=== PATIENT | female | born 1945 | race Caucasian/White ===

== ENCOUNTER 2024-03-04 12:43 | Emergency (ER) | payer MEDICARE, SELFPAY ==
[2024-03-04 12:45] VITALS: BMI 32.1
[2024-03-04 13:03] VITALS: BP 150/79; PULSE 96; RESP 20; TEMP 36.7; O2SAT 93
--- NOTE | 2024-03-04 13:08 | XR_ITS ---
Examination: CT chest, without intravenous contrast. CT abdomen, without intravenous contrast. CT pelvis, without intravenous contrast. 2-D sagittal and coronal reconstructions. 3-D reconstructions. Date and time of exam:March 04, 2024 1613 hours INDICATIONS: Patient fell 4 days ago with injury to the chest and abdomen, chest pain abdomen pain CTDI vol (mgy) 10.9 DLP (MGycm)815 Technique: Multiple CT images, 3.0 mm slice thickness, obtained chest, abdomen, pelvis, with the high-resolution 64 slice scanner.. Sagittal and coronal 2-D reconstructions are obtained. 3-D reconstructions Low dose protocols were performed. One or more of the following dose reduction techniques were used; automated exposure control, adjustment of the mA and/or KV according to patient size, use of iterative reconstruction technique. Findings: Thoracic aorta pulmonary arteries intact No hemopericardium Significant calcification left anterior descending coronary artery No pneumonia or pneumothorax pulmonary contusion or hemothorax The manubrium the body the sternum thoracic vertebral bodies appear intact Ribs appear intact No soft tissue chest contusion No liver splenic or right renal laceration, absent left kidney No gallstones No pancreatic mass Abdominal aorta intact, no free blood in the abdomen Negative for pneumoperitoneum No pericecal inflammatory change Colonic diverticulosis Contracted urinary bladder with urinary bladder wall thickening and pericystic inflammatory change Small fat-containing femoral hernias Lumbar vertebral bodies sacral segments and bones of the pelvis including anterior rami and hips appear intact No abdominal or pelvic wall soft tissue contusion Severe osteopenia with advanced degenerative disc disease L1-L2, L2-L3, L3-L4, L4-L5 IMPRESSION: Thoracic aorta pulmonary arteries intact No hemopericardium, pneumothorax, pulmonary contusion or hemothorax No abdominal parenchymal laceration Abdominal aorta intact No free blood in the abdomen Osseous structures appear intact
--- NOTE | 2024-03-04 13:08 | XR_ITS ---
Examination: CT lumbar spine, without contrast. 2-D sagittal reconstructions. 2-D coronal reconstructions. 3-D reconstructions. Date and time of exam:March 04, 2024 1613 hours INDICATIONS: Patient fell 4 days ago with injury to lower back, lower back pain CTDI: vol (mGy):24.3 DLP: (mGycm):750 Technique: Multiple 1.25 mm axial sections of the lumbar spine have been obtained. 2-D sagittal and coronal reconstructions have been obtained. 3-D reconstructions have been obtained. Low dose protocols were performed. One or more of the following dose reduction techniques were used; automated exposure control, adjustment of the mA and/or KV according to patient size, use of iterative reconstruction technique. Findings: Severe osteopenia No acute lumbar vertebral body compression fracture Significant disc narrowing upper 4 lumbar levels No spondylolisthesis Lumbar pedicles laminated transverse and posterior spinous processes intact 1 mm nonobstructing right renal calculus No focal soft tissue disc protrusion IMPRESSION: No acute lumbar fracture
--- NOTE | 2024-03-04 13:08 | XR_ITS ---
Examination: CT thoracic spine, without contrast. 2-D sagittal reconstructions. 2-D coronal reconstructions. 3-D reconstructions. Date and time of exam:March 04, 2024 1313 hours INDICATIONS: Patient fell 4 days ago with injury to the back, mid back pain CTDI: vol (mGy):21.2 DLP: (mGycm):742 Technique: Multiple 1.25 mm axial sections of the thoracic spine without intravenous contrast have been obtained. 2-D sagittal and coronal reconstructions have been obtained. 3-D reconstructions have been obtained. Low dose protocols were performed. One or more of the following dose reduction techniques were used; automated exposure control, adjustment of the mA and/or KV according to patient size, use of iterative reconstruction technique. Findings: Prominent osteopenia No acute thoracic vertebral body compression fracture Thoracic pedicles lamina transverse and posterior spinous processes appear intact No focal thoracic disc protrusion oval soft tissue density settings No pneumothorax No hemothorax depicted IMPRESSION: No acute thoracic fracture
--- NOTE | 2024-03-04 13:08 | XR_ITS ---
Examination: Knee, left , 3 views Technique: Knee AP, lateral, oblique 3 views Date and time of exam: March 04, 2024 1414 hours INDICATIONS: Patient fell 5 days ago with injury to the knee, knee pain FINDINGS: Significant osteopenia Moderate narrowing medial joint space Mild osteoarthritis patellofemoral joint No fracture IMPRESSION: Moderate narrowing medial joint space Meniscus calcification
[2024-03-04 13:52] LABS: Collection Type, Urine Clean Catch
[2024-03-04 14:01] LABS: Bacteria,Urine Rare; Bilirubin,Urine Negative (Negative); Blood,Urine 2+ (Negative); Budding Yeast,Urine Present; Color,Urine Yellow (Lt Yel-Yel); Culture Indicated,Urine Contaminated; Glucose, Urine Negative (Negative); Hyaline Casts,Urine < 1 /hpf (0-1); Ketones,Urine Negative (Negative); Leukocyte Esterase,Urine Positive (Negative); Nitrite,Urine Negative (Negative); PH,Urine 5.5 (5.0-7.0); Protein,Urine 1+ (Neg - Trace); RBC,Urine 45 /hpf (0-3); Specific Gravity,Urine 1.021 (1.001-1.035); Squamous Epithelial Cell,Urine 12 /hpf (0-5); Urobilinogen,Urine Negative mg/dL (0.0-1.0); WBC,Urine 627 /hpf (0-5)
[2024-03-04 14:08] LABS: Clarity,Urine Cloudy (Clear/Hazy)
--- NOTE | 2024-03-04 14:14 | PD.EDFALL ---
ED Fall Injury RME/HPI General Chief Complaint: Abdominal Pain Stated Complaint: INCONT/CONSTIPATION S/P FALL 4 DAYS AGO Time Seen by Provider: 03/04/24 12:57 Arrival date/time: 03/04/24 12:43 RME / HPI RME / HPI Narrative: This section includes all my notes and documentations, including HPI, PE, and ED course. Chito Diaz MD HPI: 78-year-old female here to be evaluated after a mechanical fall several days ago. Landed on her left side. No head injury. Reports pain in the left ankle area. She also reports urinary frequency and incontinence for the past several days. No paralysis. No numbness or tingling. No loss of control of the bowels. No saddle numbness. No other complaints. ROS: All negative except as documented in HPI. Physical Exam: General: Alert and oriented. No acute distress. Eyes: Conjunctivae and lids clear. EOMI. PERRL. ENT: No signs of head trauma. Neck: Supple. No tenderness. Heart: RRR. Lungs: No respiratory distress. Good air movement. No rhonchi, wheezing, rales. Chest: No tenderness. Abdomen: Soft and nontender. Normal bowel sounds. No distension. No rebound or guarding. Back: No tenderness. Legs: No clubbing, cyanosis, edema. Skin: Warm and dry. Neuro: Alert and oriented X 3. Cranial Nerves II-XII grossly intact. No peripheral motor deficits. Musculoskeletal: Equivocal left knee tenderness. All other major joints and bones are not tender with no limited ROM. I reviewed all diagnostic test results. My interpretation of the left knee x-rays is no acute fracture. My review of the CT reports (chest/abdomen/pelvis and thoracic/lumbar) is no acute findings. UA showed RBC and WBC and bacteria. At this point, diagnoses include UTI and no severe injury after mechanical fall. Treatment here included Macrobid 100 mg. Based on my best medical judgment, made decision no further evaluation or treatment indicated at this time. Patient understands and agrees to the discharge instructions customized and printed, see below. Discharge Instructions from Dr. Diaz printed for you: 1. After extensive evaluation (including CT scans with advanced technology to look inside), there is no serious injury. Such as broken back or broken ribs or other broken bone or internal organ injury. 2. But you have severe UTI. Take Macrobid (nitrofurantoin) to kill the germs causing the infection.? Increase oral fluid to flush it out.? Maintain clear urine.? If dark or yellow, increase oral fluid. 3. See a private doctor on 03/07/2024 for recheck if not completely better. 4. Seek immediate medical care with worsening or with any concerns. Chito Diaz MD Related Data Home Medications ?Medication ?Instructions ?Recorded ?Confirmed Amitriptyline Hcl PO HS Depression ##0 01/12/13 pregabalin 300 mg capsule (Lyrica) PO BID PAIN ##0 01/12/13 loratadine 10 mg tablet (Claritin) 10 mg PO QDAY #0 tabs 12/12/16 Previous Rx's ?Medication ?Instructions ?Recorded HYDROCODONE BITARTRATE/APAP 1 tab PO Q4-6HRPRN PRN PAIN ##30 10/27/12 (Vicodin 5/500*) nitrofurantoin 100 mg PO BID 7 days #14 caps 03/04/24 monohydrate/macrocrystals 100 mg capsule (Macrobid) Allergies Allergy/AdvReac Type Severity Reaction Status Date / Time Penicillins Allergy Severe RASH Verified 03/04/24 12:49 pseudoephedrine Allergy Severe Difficulty Verified 03/04/24 12:49 Breathing Sulfa (Sulfonamide Allergy Severe RASH, Verified 03/04/24 12:49 Antibiotics) TAKES O2 OUT OF BLOOD diazepam AdvReac Severe MOOD Verified 03/04/24 12:49 ALTERATION propoxyphene AdvReac Severe GOES CRAZY Verified 03/04/24 12:49 Course Quality Measures none Orders Category Date Time Status CT chest abdomen pelvis wo Stat Exams 03/04/24 13:[address] lumbar spine wo con Stat Exams 03/04/24 13:[address] thoracic spine wo con Stat Exams 03/04/24 13:08 Completed XR knee LT 3V Stat Exams 03/04/24 13:08 Completed UA, C/S IF [Urinalysis, C/S if Indicated] Stat Lab 03/04/24 13:45 Completed Nitrofurantoin Macro [Macrobid] Med 03/04/24 14:14 Discontinued 100 mg PO X1 ONE Vital Signs Vital signs: Vital Signs Temperature 98.1 F 03/04/24 13:03 Pulse Rate 96 03/04/24 13:03 Respiratory Rate 20 03/04/24 13:03 Blood Pressure 150/79 H 03/04/24 13:03 Pulse Oximetry (%) 93 L 03/04/24 13:03 Oxygen Delivery Method Room Air 03/04/24 13:03 Fall Patient data External records reviewed:: [facility] previous records Clinical information provided by:: patient Social determinants that could affect healthcare access:: none Patient has the following chronic illnesses:: See chart How is presenting disease/condition affected by chronic disease/condition?: uneffected by Evaluation data The following diagnostics were reviewed and interpreted by me:: lab results and radiology exam(s) Lab and/or radiology exams considered but not ordered:: None Interpretation Summary: UTI Medications / Prescriptions Medications or Prescriptions considered but not ordered:: None Medication administrations:: Medication Administration History Discontinued Medications Nitrofurantoin Macrocrystals (Nitrofurantoin Macro 100 Mg Capsule) 100 mg PO X1 ONE Stop: 03/04/24 14:15 Last Admin: 03/04/24 15:03 Dose: 100 mg Documented By: DAKOTA Macrobikaia Consultations Consultation(s) initiated? (list below): No Diagnosis Fall Differential Diagnosis: compression fracture and other (Fracture, internal organ injury, UTI) Most likely diagnosis given after review of the tests above:: UTI Admission Indicated Admission indicated?: not indicated Explain why admission is indicated or not indicated:: Admission criteria not met Admission Request Was there a request for admission?: No Disposition Plan Disposition Plan: Discharge Discharge Attestation Discharge Attestation: The patient and all family members were given an opportunity to ask questions and understood the discharge instructions. Discharge instructions specifically effects, indications for sooner follow up or return to the emergency department, and the expected course of current diagnosis. Patient condition: Stable Discharge Plan Plan Patient Disposition: HOME (Self Care) Prescriptions/Referrals Prescriptions/Med Rec: New nitrofurantoin monohyd/m-cryst [Macrobid] 100 mg capsule 100 mg PO BID 7 Days Qty: 14 0RF Rx Instructions: must administer with a meal/food No Action HYDROCODONE BITARTRATE/APAP (Vicodin 5/500*) 1 TAB tablet 1 tab PO Q4-6HRPRN PRN (Reason: PAIN) Qty: 30 0RF Amitriptyline Hcl 50 MG tablet PO HS Qty: 0 pregabalin [Lyrica] 300 MG capsule PO BID Qty: 0 loratadine [Claritin] 10 MG tablet 10 mg PO QDAY Qty: 0 Referrals: Zoraida Rosas MD [Primary Care Provider] - In 1 week Problem List Clinical Impression: Acute UTI, Fall Patient/Caregiver Discharge Instructions Discharge Activity: activity as tolerated Education Materials: ED CYSTITIS Female Adult Additional Instructions: Discharge Instructions from Dr. Diaz printed for you: 1. After extensive evaluation (including CT scans with advanced technology to look inside), there is no serious injury. Such as broken back or broken ribs or other broken bone or internal organ injury. 2. But you have severe UTI. Take Macrobid (nitrofurantoin) to kill the germs causing the infection.? Increase oral fluid to flush it out.? Maintain clear urine.? If dark or yellow, increase oral fluid. 3. See a private doctor on 03/07/2024 for recheck if not completely better. 4. Seek immediate medical care with worsening or with any concerns. Print Language: Citizen Of [place] Stand Alone Forms: Jacki Award Info., Patient Portal Info Letter
[2024-03-04] MEDS: NITROFURANTOIN MACRO 100 MG CAPSULE PO (15:03)
== END 2024-03-04 17:15 | disposition home or self-care (01) ==
PROVIDERS: Emergency Provider Emergency Medicine; PCP Family Medicine
DX: S89.92XA Unspecified injury of left lower leg, initial encounter (principal); S29.9XXA Unspecified injury of thorax, initial encounter; S39.91XA Unspecified injury of abdomen, initial encounter; S39.92XA Unspecified injury of lower back, initial encounter; N39.0 Urinary tract infection, site not specified; W18.30XA Fall on same level, unspecified, initial encounter
CPT/HCPCS: 71250; 72128; 72131; 73562; 74176; 81001; 99284; A9270

== ENCOUNTER → 2024-03-04 | Outpatient (CLI) | payer MEDICARE, SELFPAY | END | disposition home or self-care (01) | LOC: SLDO 12:21 | PROVIDERS: PCP Nurse Practitioner Family; Referring Provider Nurse Practitioner Family; Visit Provider Nurse Practitioner Family | DX: N39.0 Urinary tract infection, site not specified (principal) | CPT/HCPCS: 87077; 87086; 87186 ==

== ENCOUNTER → 2024-03-10 | Outpatient (CLI) | payer MEDICARE, SELFPAY | END | disposition home or self-care (01) | LOC: SLDO 16:05 | PROVIDERS: PCP Nurse Practitioner Family; Referring Provider Nurse Practitioner Family; Visit Provider Nurse Practitioner Family | DX: N39.0 Urinary tract infection, site not specified (principal) | CPT/HCPCS: 87086 ==

== ENCOUNTER → 2024-06-25 | Outpatient (CLI) | payer OTHER, SELFPAY ==
--- NOTE | 2024-06-25 09:30 | XR_ITS ---
Examination: MRI lumbar spine without contrast Date and time of exam: June 25, 2024 at 0938 hours INDICATIONS: Patient fell 4 months ago with injury to lower back, persistent lower back pain Technique: Multiple MRI axial and sagittal sections lumbar spine. Sagittal T2-weighted images, TR 3500, TE 118 T1 weighted transverse sections, TR 688 T8.5, T2-weighted sagittal sections T1 weighted sagittal sections TR 621, TE 30 T2 axial sections, TR 4, 190, TE 84. Findings: Adequate alignment lumbar vertebral bodies on the lateral view No lumbar fracture Advanced disc narrowing L3-L4 Diffuse lumbar disc desiccation Moderate lumbar spondylosis L5-S1 2 mm central right paracentral disc bulge extending to the left foraminal region with mild left L5 ganglionic compression L4-L5 bilateral foraminal disc bulges, 6 mm on the right with mild right L4 ganglionic compression L3-L4 5 mm central lumbar disc bulge L2-L3 foraminal disc bulges but no ganglionic compression L1-L2 foraminal disc bulges but no ganglionic compression IMPRESSION: Diffuse lumbar degenerative disc disease, advanced L3-L4 L5-S1 2 mm central right paracentral disc bulge extending to the left foraminal region with mild left L5 ganglionic impression L5-S1 6 mm right foraminal disc bulge producing mild right L4 ganglionic compression L3-L4 5 mm central lumbar disc bulge
== END | disposition home or self-care (01) ==
LOC: SMRI 08:56
PROVIDERS: PCP Family Medicine; Referring Provider Nurse Practitioner Family; Visit Provider Nurse Practitioner Family
DX: M51.370 Other intervertebral disc degeneration, lumbosacral region with discogenic back pain only (principal); M51.360 Other intervertebral disc degeneration, lumbar region with discogenic back pain only; G95.20 Unspecified cord compression
CPT/HCPCS: 72148

== ENCOUNTER → 2024-07-13 | Outpatient (CLI) | payer OTHER, SELFPAY ==
[2024-07-13 12:05] LABS: Amphetamine/Methamp Scrn,U Negative (Negative); Barbiturate Screen,Urine Negative (Negative); Benzodiazepines Screen,Urine Negative (Negative); Benzoylecgonine Screen, Ur Negative (Negative); Fentanyl Screen,Urine Negative (Negative); Opiate Screen,Urine Positive (Negative); THC Screen,Urine Negative (Negative)
== END | disposition home or self-care (01) ==
PROVIDERS: Referring Provider Internal Medicine; Visit Provider Internal Medicine
DX: M48.061 Spinal stenosis, lumbar region without neurogenic claudication (principal)
CPT/HCPCS: 80307

== ENCOUNTER 2024-09-22 11:54 | Emergency (ER) | payer OTHER, SELFPAY ==
[2024-09-22 12:33] VITALS: BP 81/50; BP 96/50; PULSE 99; RESP 20; TEMP 36.3; O2SAT 94; BMI 30.1
--- NOTE | 2024-09-22 12:45 | XR_ITS ---
Examination: CT brain head without contrast. 2-D sagittal coronal reconstructions Date and time of exam:September 22, 2024 1253 hours INDICATIONS: Patient fell today with injury to the head, head pain COMPARISON: July 28, 2018 CTDI: vol (mGy):55 DLP: (mGycm):1165 Technique: Multiple CT axial sections of the brain have been obtained, 5 mm slice thickness. Contrast has not been administered. 2-D sagittal, coronal reconstructions have been obtained Low dose protocols were performed. One or more of the following dose reduction techniques were used; automated exposure control, adjustment of the mA and/or KV according to patient size, use of iterative reconstruction technique. Findings: No significant ventricular enlargement. 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 No mass effect or midline shift Basal cisterns are not remarkable. Fourth ventricle is midline. Cranial vault intact. Impression: Negative for acute hemorrhage, mass effect or midline shift
--- NOTE | 2024-09-22 12:45 | XR_ITS ---
Examination: CT cervical spine without contrast 2-D sagittal reconstructions 2-D coronal reconstructions 3-D reconstructions. Exam date and time:September 22, 2024 1253 hours INDICATIONS: Patient fell today with injury to the neck, neck pain CTDI:vol (mGy) 15.2 DLP: (mGycm) 329 Technique: Multiple 2 mm axial sections of the cervical spine have been obtained. The coronal and sagittal reconstructions have been obtained. 3-D reconstructions have been obtained. Low dose protocols were performed. One or more of the following dose reduction techniques were used; automated exposure control, adjustment of the mA and/or KV according to patient size, use of iterative reconstruction technique. Findings: Axial sections demonstrate intact base of the skull. Advanced degenerative disc disease C5-C6 C1 exhibit satisfactory relationship to the odontoid. No acute cervical vertebral body fracture seen. Alignment posterior spinous processes satisfactory. Impression: No acute cervical fracture.
--- NOTE | 2024-09-22 12:45 | XR_ITS ---
Examination: AP chest single view Technique one AP portable upright chest single view Date and time: September 22, 2024 1341 hours Comparison June 19, 2022 INDICATIONS: Patient fell today with into the chest, chest pain. FINDINGS: No significant cardiac enlargement No pneumothorax Minimal blunting of the lateral costophrenic angle Moderate osteopenia Clavicles ribs appear intact IMPRESSION: No pneumothorax
--- NOTE | 2024-09-22 12:47 | EKG_ITS ---
[facility] Test Date: 2024-09-22 Pat Name: MALGORZATA VILLARREAL Department: Room: - Gender: Female Sample Body Builder: : 1945 Requested By: Angel Sylvester Order Number: [id number] Reading MD: Angel Sylvester Measurements Intervals [place] Rate: 77 P: 8 DC: 233 QRS: 28 QRSD: 77 T: 30 QT: 350 QTc: 397 Interpretive Statements SINUS RHYTHM WITH FIRST DEGREE AV BLOCK LOW QRS VOLTAGE IN PRECORDIAL LEADS [QRS DEFLECTION < 1.0 mV IN CHEST LEADS] No previous ECG available for comparison /[id number]/[email or web address]/[id number]
--- NOTE | 2024-09-22 12:47 | PD.EDHEAD ---
ED Head Injury RME/HPI General Chief complaint: Head Injury Stated complaint: HEAD INJURY OFF COFFEE TABLE WITH LOC Time Seen by Provider: 09/22/24 11:58 Arrival date/time: 09/22/24 11:54 RME / HPI RME / HPI Narrative: 79-year-old female patient was brought in by family for evaluation regarding dizziness. Patient sustained a fall earlier last night, sustaining abrasion/contusion to the left forehead. Patient also complained of neck pain severity mild. Been complaining of dizziness especially with ambulation and standing. Denies any chest pain. Denies any fever denies any cough denies any abdominal pain denies any diarrhea or constipation. Denies any vomiting. In the triage patient was noted to be hypotensive on the low 90s. Related Data Home Medications ?Medication ?Instructions ?Recorded ?Confirmed Amitriptyline Hcl PO HS Depression ##0 01/12/13 pregabalin 300 mg capsule (Lyrica) PO BID PAIN ##0 01/12/13 loratadine 10 mg tablet (Claritin) 10 mg PO QDAY #0 tabs 12/12/16 Previous Rx's ?Medication ?Instructions ?Recorded HYDROCODONE BITARTRATE/APAP 1 tab PO Q4-6HRPRN PRN PAIN ##30 10/27/12 (Vicodin 5/500*) cephalexin 500 mg capsule 500 mg PO TID 7 days #21 caps 09/22/24 Allergies Allergy/AdvReac Type Severity Reaction Status Date / Time Penicillins Allergy Severe RASH Verified 09/22/24 11:57 pseudoephedrine Allergy Severe Difficulty Verified 09/22/24 11:57 Breathing Sulfa (Sulfonamide Allergy Severe RASH, Verified 09/22/24 11:57 Antibiotics) TAKES O2 OUT OF BLOOD diazepam AdvReac Severe MOOD Verified 09/22/24 11:57 ALTERATION propoxyphene AdvReac Severe GOES CRAZY Verified 09/22/24 11:57 Review of Systems Review of Systems Narrative Review of Systems: Review of system reviewed and within normal limits except mentioned in HPI ED Exam Narrative Physical exam: VITAL SIGNS: Reviewed. GENERAL APPEARANCE: Alert and interactive, follows commands, no acute distress, HEAD AND FACE: Contusion noted to the left forehead ENT: PERRL, pink conjunctivitis, eyelid no trauma, Mucous membrane moist. NECK: Supple, nontender, no nuchal rigidity. CHEST: No tenderness, no crepitus, no paradoxical movement, no retractions. LUNGS: Clear, well ventilated, symmetric, no rales, no wheezing, no ronchi, no stridor, good breath sounds bilaterally. HEART: Regular rate, regular rhythm, no murmur, no gallops. ABDOMEN: Soft, positive bowel sounds, nondistended, no guarding, nontender, no rebound, no masses, RECTAL: Deferred. GENITAL: Deferred. NEUROLOGICAL: Gross motor function intact sensory function intact, Appropriate for age. MUSCULOSKELETAL: low back nontender, full range of motion. EXTREMITIES: Nontender, full range of motion. SKIN: Color pink, dry, no rash, no lacerations, no abrasions, no contusions. LYMPHATICS: Deferred. Course Quality Measures none Orders Category Date Time Status EKG (ED ONLY) *Do not use* NOW Care 09/22/24 12:[address] cervical spine wo con Stat Exams 09/22/24 12:[address] head/brain wo con Stat Exams 09/22/24 12:45 Completed EKG (ED Only) Stat Exams 09/22/24 12:47 Draft XR chest 1V Stat Exams 09/22/24 12:45 Completed B-Type Natriuretic Peptide Stat Lab 09/22/24 12:55 Completed CBC Stat Lab 09/22/24 12:55 Completed Comprehensive Metabolic Panel Stat Lab 09/22/24 12:55 Completed Partial Thromboplastin Time Stat Lab 09/22/24 12:55 Completed Prothrombin Time with INR Stat Lab 09/22/24 12:55 Completed Troponin I Stat Lab 09/22/24 12:55 Completed Urinalysis, C/S if Indicated Stat Lab 09/22/24 16:54 Completed Ringers Lactated 1000 ml [Lactated Ringers] 1,000 ml Med 09/22/24 12:47 Discontinued IV 999 mls/hr cephALEXin [Keflex] Med 09/22/24 18:28 Discontinued 500 mg PO X1 ONE Vital Signs Vital signs: Vital Signs Temperature 97.4 F 09/22/24 12:33 Pulse Rate 99 09/22/24 12:33 Respiratory Rate 20 09/22/24 12:33 Blood Pressure 96/50 L 09/22/24 12:33 Pulse Oximetry (%) 94 L 09/22/24 12:33 Oxygen Delivery Method Room Air 09/22/24 12:33 Head Injury [facility] Narrative [facility] Narrative:: 79-year-old female patient was brought in by family for evaluation regarding dizziness. Patient sustained a fall earlier last night, sustaining abrasion/contusion to the left forehead. Patient also complained of neck pain severity mild. Been complaining of dizziness especially with ambulation and standing. Denies any chest pain. Denies any fever denies any cough denies any abdominal pain denies any diarrhea or constipation. Denies any vomiting. In the triage patient was noted to be hypotensive on the low 90s. EKG showed sinus rhythm, ventricular rate of 77 bpm, no ST segment elevation or depression noted. CT scan of the head came back unremarkable. CT scan of the neck came back unremarkable. Chest x-ray also came back normal. The rest of the labs are within normal limits. Patient blood pressure was noted to be 159/83 heart rate of 83 after patient received 1 L of IV fluids. Patient stable for discharge home no recurrence of hypotension in the ED. Patient was also given Keflex for UTI. Patient data External records reviewed:: None Clinical information provided by:: patient Social determinants that could affect healthcare access:: none Patient has the following chronic illnesses:: Hypertension How is presenting disease/condition affected by chronic disease/condition?: exacerbated by Evaluation data The following diagnostics were reviewed and interpreted by me:: lab results, radiology exam(s) and EKG tracing(s) Lab and/or radiology exams considered but not ordered:: None Interpretation Summary: See results [facility] Medications / Prescriptions Medications or Prescriptions considered but not ordered:: None Medication administrations:: Medication Administration History Discontinued Medications Cephalexin HCl (Cephalexin 250 Mg Capsule) 500 mg PO X1 ONE Stop: 09/22/24 18:29 Lactated Ringer's (Lactated Ringers) 1,000 mls @ 999 mls/hr IV .Q1H1M ONE Stop: 09/22/24 13:47 Last Infusion: 09/22/24 14:13 Dose: Infused Documented By: Admin: 09/22/24 13:12 Dose: 999 mls/hr Documented By: AUREA Keflex and IV fluids Consultations Consultation(s) initiated? (list below): No Diagnosis Differential diagnosis head injury: closed head injury and subdural hematoma Most likely diagnosis given after review of the tests above:: Hypotension, UTI, fall Admission Indicated Admission indicated?: not indicated Admission Request Was there a request for admission?: No Disposition Plan Disposition Plan: Discharge Discharge Attestation Discharge Attestation: The patient and all family members were given an opportunity to ask questions and understood the discharge instructions. Discharge instructions specifically effects, indications for sooner follow up or return to the emergency department, and the expected course of current diagnosis. Patient condition: Stable Discharge Plan Plan Patient Disposition: HOME (Self Care) Discharge Disposition comment: stable Prescriptions/Referrals Prescriptions/Med Rec: New cephalexin 500 mg capsule 500 mg PO TID 7 Days Qty: 21 0RF No Action HYDROCODONE BITARTRATE/APAP (Vicodin 5/500*) 1 TAB tablet 1 tab PO Q4-6HRPRN PRN (Reason: PAIN) Qty: 30 0RF Amitriptyline Hcl 50 MG tablet PO HS Qty: 0 pregabalin [Lyrica] 300 MG capsule PO BID Qty: 0 loratadine [Claritin] 10 MG tablet 10 mg PO QDAY Qty: 0 Referrals: Darwin Rosas MD [Primary Care Provider] - In 1 week Problem List Clinical Impression: Fall, Acute hypotension, UTI (urinary tract infection) Patient/Caregiver Discharge Instructions Discharge Activity: activity as tolerated Education Materials: Understanding Urinary Tract ... Additional Instructions: Thank you for the opportunity for serving you today. You are stable for discharged . You are advised to: Follow-up with your PCP in 1 to 2 days Return to ED for worsening of symptoms Increase oral fluids Take medication as prescribed Print Language: Samoan Stand Alone Forms: Jacki Award Info., Patient Portal Info Letter SHAWN/SORAIDA Supervising Physician SHAWN/SORAIDA Supervising Physician: MD Tanya
[2024-09-22] MEDS: RINGERS LACTATED 1000 ML 1,000 ML 999 ML IV (13:12)
[2024-09-22 13:15] LABS: Basophils # (Auto) 0.1 Thou/mm3 (0.0-0.2); Basophils % (Auto) 1 % (0-2.5); Eosinophils # (Auto) 0.3 Thou/mm3 (0.0-0.5); Eosinophils % (Auto) 3 % (0-10); Hematocrit 47.7 % (36.0-46.0); Hemoglobin 15.7 g/dL (12.0-16.0); Immature Granulocytes Auto 0.04 Thou/mm3 (0.00-0.00); Lymphocytes # (Auto) 1.8 Thou/mm3 (1.0-4.8); Lymphocytes % (Auto) 16 % (10-50); Mean Corpuscular HGB Conc 32.9 g/dl (31.0-37.0); Mean Corpuscular Hemoglobin 29.7 pg (25.0-35.0); Mean Corpuscular Volume 90 fL (80-100); Monocytes # (Auto) 0.5 Thou/mm3 (0.0-0.8); Monocytes % (Auto) 5 % (0-12); Neutrophils # (Auto) 8.2 Thou/mm3 (1.8-7.7); Neutrophils % (Auto) 75 % (37-80); Nucleated Red Blood Cell # 0.00 Thou/mm3 (0.00-0.00); Nucleated Red Blood Cell % 0 /100 WBC (0); Platelet Count 292 Thou/mm3 (140-440); RDW Standard Deviation 42.7 fL (36.4-46.3); Red Blood Count 5.28 Miln/mm3 (4.00-5.20); White Blood Count 10.9 Thou/mm3 (3.6-11.0)
[2024-09-22 13:32] LABS: INR 1.0 (0.9-1.3); Partial Thromboplastin Time 27.4 Seconds (22.0-36.0); Prothrombin Time 11.4 Seconds (9.0-12.2)
[2024-09-22 13:33] LABS: Alanine Aminotransferase 13 U/L (10-49); Albumin, Serum 4.3 gm/dL (3.4-4.8); Albumin/Globulin Ratio 1.3 (1.2-2.2); Alkaline Phosphatase 109 U/L (46-116); Anion Gap 4 (7-16); Aspartate Amino Transferase 22 U/L (0-34); BUN/Creatinine Ratio 9 Ratio (12-20); Bilirubin,Total 0.4 mg/dL (0.3-1.2); Blood Urea Nitrogen 12 mg/dL (9-23); Calcium 9.3 mg/dL (8.3-10.6); Calcium (Corrected) 9.3 mg/dL (8.5-10.1); Carbon Dioxide 31.0 mMol/L (20.0-31.0); Chloride 103 mMol/L (98-107); Creatinine (Component) 1.4 mg/dL (0.6-1.3); Estimated Creatinine Clearance 35.6 mL/min (>60); Globulin 3.2 gm/dL (2.3-3.5); Glucose 141 mg/dL (74-106); Osmolality,Calculated 277 (275-295); Potassium 3.6 mMol/L (3.4-5.1); Sodium 138 mMol/L (136-145); Total Protein 7.5 gm/dL (5.7-8.2); Troponin I < 0.020 ng/mL (0.0-0.045); eGFR 39 See Note
[2024-09-22 13:39] LABS: B-Type Natriuretic Peptide 80 pg/mL (0-100)
[2024-09-22 14:05] VITALS: BP 125/65; PULSE 75; RESP 15; TEMP 37.1; O2SAT 94
[2024-09-22 16:00] VITALS: BP 145/75; PULSE 72; RESP 16; TEMP 37.1; O2SAT 93
[2024-09-22 16:57] LABS: Collection Type, Urine Clean Catch
[2024-09-22 17:30] LABS: Bacteria,Urine Rare; Bilirubin,Urine Negative (Negative); Blood,Urine Negative (Negative); Clarity,Urine Clear (Clear/Hazy); Color,Urine Colorless (Lt Yel-Yel); Culture Indicated,Urine Not Indicated; Glucose, Urine Negative (Negative); Ketones,Urine Negative (Negative); Leukocyte Esterase,Urine Positive (Negative); Nitrite,Urine Negative (Negative); PH,Urine 6.0 (5.0-7.0); Protein,Urine Negative (Neg - Trace); RBC,Urine 1 /hpf (0-3); Specific Gravity,Urine 1.007 (1.001-1.035); Squamous Epithelial Cell,Urine 1 /hpf (0-5); Urobilinogen,Urine Negative mg/dL (0.0-1.0); WBC,Urine 6 /hpf (0-5)
[2024-09-22 18:00] VITALS: BP 159/83; PULSE 83; RESP 21; TEMP 36.6; O2SAT 95
== END 2024-09-22 19:05 | disposition home or self-care (01) ==
PROVIDERS: Nurse Practitioner Family; Emergency Provider Family Medicine; PCP Family Medicine
DX: I95.9 Hypotension, unspecified (principal); N39.0 Urinary tract infection, site not specified; S00.81XA Abrasion of other part of head, initial encounter; S00.93XA Contusion of unspecified part of head, initial encounter; S19.9XXA Unspecified injury of neck, initial encounter; R07.9 Chest pain, unspecified; I44.0 Atrioventricular block, first degree; I10 Essential (primary) hypertension; W18.30XA Fall on same level, unspecified, initial encounter
CPT/HCPCS: 36415; 70450; 71045; 72125; 80053; 81001; 83880; 84484; 85025; 85610; 85730; 93005; 96360; 99283; J7120; A9270

== ENCOUNTER → 2024-10-06 | Outpatient (CLI) | payer OTHER, SELFPAY ==
[2024-10-06 15:09] LABS: Basophils # (Auto) 0.0 Thou/mm3 (0.0-0.2); Basophils % (Auto) 1 % (0-2.5); Eosinophils # (Auto) 0.3 Thou/mm3 (0.0-0.5); Eosinophils % (Auto) 4 % (0-10); Hematocrit 45.7 % (36.0-46.0); Hemoglobin 15.2 g/dL (12.0-16.0); Immature Granulocytes Auto 0.02 Thou/mm3 (0.00-0.00); Lymphocytes # (Auto) 2.0 Thou/mm3 (1.0-4.8); Lymphocytes % (Auto) 22 % (10-50); Mean Corpuscular HGB Conc 33.3 g/dl (31.0-37.0); Mean Corpuscular Hemoglobin 30.1 pg (25.0-35.0); Mean Corpuscular Volume 91 fL (80-100); Monocytes # (Auto) 0.4 Thou/mm3 (0.0-0.8); Monocytes % (Auto) 5 % (0-12); Neutrophils # (Auto) 6.0 Thou/mm3 (1.8-7.7); Neutrophils % (Auto) 68 % (37-80); Nucleated Red Blood Cell # 0.00 Thou/mm3 (0.00-0.00); Nucleated Red Blood Cell % 0 /100 WBC (0); Platelet Count 253 Thou/mm3 (140-440); RDW Standard Deviation 43.3 fL (36.4-46.3); Red Blood Count 5.05 Miln/mm3 (4.00-5.20); White Blood Count 8.8 Thou/mm3 (3.6-11.0)
[2024-10-06 15:27] LABS: T4 (Thyroxine) 7.5 mcg/dL (4.5-10.9); Vitamin D 25 Hydroxy Total 34.5 ng/mL (7.3-40.2)
[2024-10-06 15:30] LABS: Glucose Estimated Average 105 mg/dL (80-131); Hemoglobin A1C 5.3 % Hgb (4.8-6.0)
[2024-10-06 15:31] LABS: Creatinine MALB Rnd Ur 132 mg/dL (30-125); Microalbumin Creat Ratio 8 mg/gCrea (<30); Microalbumin, Random Urine 11 mg/L (0-300)
[2024-10-06 15:34] LABS: Alanine Aminotransferase 20 U/L (10-49); Albumin, Serum 4.5 gm/dL (3.4-4.8); Albumin/Globulin Ratio 1.6 (1.2-2.2); Alkaline Phosphatase 93 U/L (46-116); Anion Gap 9 (7-16); Aspartate Amino Transferase 30 U/L (0-34); BUN/Creatinine Ratio 8 Ratio (12-20); Bilirubin,Total 0.4 mg/dL (0.3-1.2); Blood Urea Nitrogen 8 mg/dL (9-23); Calcium 9.7 mg/dL (8.3-10.6); Calcium (Corrected) 9.7 mg/dL (8.5-10.1); Carbon Dioxide 31.4 mMol/L (20.0-31.0); Cardiac Risk Estimate 5.5 RATIO (3.7-5.6); Chloride 102 mMol/L (98-107); Cholesterol 230 mg/dL (132-200); Creatinine (Component) 1.0 mg/dL (0.6-1.3); Globulin 2.9 gm/dL (2.3-3.5); Glucose 94 mg/dL (74-106); HDL Cholesterol 42 mg/dL (40-60); LDL Cholesterol,Calculated 148 mg/dL (0-130); Osmolality,Calculated 281 (275-295); Potassium 3.8 mMol/L (3.4-5.1); Sodium 142 mMol/L (136-145); Thyroid Stimulating Hormone 2.14 uIU/mL (0.55-4.78); Total Protein 7.4 gm/dL (5.7-8.2); Triglycerides 200 mg/dL (30-150); eGFR 58 See Note
[2024-10-06 15:45] LABS: Sed Rate (ESR) 36 mm/hr (0-30)
[2024-10-06 20:26] LABS: RA Screen Negative (Negative)
[2024-10-12 06:53] LABS: ANA Pattern NUCLEAR, HOMOGENEOUS; ANA Screen, IFA POSITIVE (NEGATIVE); ANA Titer 1:40 titer
== END | disposition home or self-care (01) ==
LOC: COPL 14:06
PROVIDERS: PCP Family Medicine; Referring Provider Nurse Practitioner Family; Visit Provider Nurse Practitioner Family
DX: I10 Essential (primary) hypertension (principal); E78.5 Hyperlipidemia, unspecified; R73.03 Prediabetes; E55.9 Vitamin D deficiency, unspecified; D89.9 Disorder involving the immune mechanism, unspecified
CPT/HCPCS: 36415; 80053; 80061; 82043; 82306; 82570; 83036; 84436; 84443; 85025; 85652; 86038; 86430

== ENCOUNTER → 2024-10-14 | Outpatient (CLI) | payer OTHER, SELFPAY ==
[2024-10-14 14:34] LABS: Collection Type, Urine Clean Catch
[2024-10-14 16:44] LABS: Bacteria,Urine Rare; Bilirubin,Urine Negative (Negative); Blood,Urine Negative (Negative); Clarity,Urine Clear (Clear/Hazy); Color,Urine Lt-Yellow (Lt Yel-Yel); Glucose, Urine Negative (Negative); Hyaline Casts,Urine < 1 /hpf (0-1); Ketones,Urine Negative (Negative); Leukocyte Esterase,Urine Positive (Negative); Nitrite,Urine Negative (Negative); PH,Urine 5.5 (5.0-7.0); Protein,Urine Negative (Neg - Trace); RBC,Urine 1 /hpf (0-3); Specific Gravity,Urine 1.021 (1.001-1.035); Squamous Epithelial Cell,Urine 4 /hpf (0-5); Urobilinogen,Urine Negative mg/dL (0.0-1.0); WBC,Urine 12 /hpf (0-5)
== END | disposition home or self-care (01) ==
LOC: SLDO 14:26
PROVIDERS: PCP Nurse Practitioner Family; Referring Provider Nurse Practitioner Family; Visit Provider Nurse Practitioner Family
DX: N39.0 Urinary tract infection, site not specified (principal)
CPT/HCPCS: 81001; 87077; 87086; 87186

== ENCOUNTER → 2024-10-17 | Outpatient (CLI) | payer OTHER, SELFPAY ==
[2024-10-17 11:38] LABS: Collection Type, Urine Clean Catch
[2024-10-17 12:43] LABS: Bilirubin,Urine Negative (Negative); Blood,Urine Negative (Negative); Clarity,Urine Clear (Clear/Hazy); Color,Urine Yellow (Lt Yel-Yel); Glucose, Urine Negative (Negative); Ketones,Urine Negative (Negative); Leukocyte Esterase,Urine Positive (Negative); Nitrite,Urine Negative (Negative); PH,Urine 6.5 (5.0-7.0); Protein,Urine Trace (Neg - Trace); RBC,Urine 3 /hpf (0-3); Specific Gravity,Urine 1.023 (1.001-1.035); Squamous Epithelial Cell,Urine 1 /hpf (0-5); Urobilinogen,Urine Negative mg/dL (0.0-1.0); WBC,Urine 2 /hpf (0-5)
[2024-10-23 23:35] LABS: Cardiolipin Ab (IgA) <2.0 APL-U/mL; Cardiolipin Ab (IgG) <2.0 GPL-U/mL; Sjogren's antibody (SS-A) <1.0 NEG AI (<1.0 NEGATIVE); Sm Antibody <1.0 NEG AI (<1.0 NEGATIVE)
[2024-10-25 07:07] LABS: B2-Glycoprotein I Ab IgA <2.0 U/mL; B2-Glycoprotein I Ab IgG <2.0 U/mL; B2-Glycoprotein I Ab IgM 2.0 U/mL; CCP Antibody (IgG)* <16 Units; Cardiolipin Ab (IgM) <2.0 MPL-U/mL; Complement Component C3* 162 mg/dL (83-193); Complement Component C4c* 27 mg/dL (15-57); DNA (ds) Antibody* 1 IU/mL; Scl-70 Antibody* <1.0 NEG AI (<1.0 NEGATIVE); Sjogren's Antibody (SS-B) <1.0 NEG AI (<1.0 NEGATIVE); Sm/RNP Antibody <1.0 NEG AI (<1.0 NEGATIVE); Thyroglobulin Antibodies* <1 IU/mL (< OR = 1); Thyroid Peroxidase Antibodies* 1 IU/mL (<9)
== END | disposition home or self-care (01) ==
LOC: COPL 11:02
PROVIDERS: PCP Nurse Practitioner Family; Referring Provider Nurse Practitioner Family; Visit Provider Nurse Practitioner Family
DX: R76.0 Raised antibody titer (principal); R70.0 Elevated erythrocyte sedimentation rate; N39.0 Urinary tract infection, site not specified
CPT/HCPCS: 36415; 81001; 86146; 86147; 86160; 86200; 86225; 86235; 86376; 86800; 87086

== ENCOUNTER → 2024-12-15 | Outpatient (CLI) | payer OTHER, SELFPAY ==
[2024-12-15 12:08] LABS: Basophils # (Auto) 0.0 Thou/mm3 (0.0-0.2); Basophils % (Auto) 0 % (0-2.5); Eosinophils # (Auto) 0.2 Thou/mm3 (0.0-0.5); Eosinophils % (Auto) 3 % (0-10); Hematocrit 44.2 % (36.0-46.0); Hemoglobin 14.7 g/dL (12.0-16.0); Immature Granulocytes Auto 0.02 Thou/mm3 (0.00-0.00); Lymphocytes # (Auto) 0.9 Thou/mm3 (1.0-4.8); Lymphocytes % (Auto) 12 % (10-50); Mean Corpuscular HGB Conc 33.3 g/dl (31.0-37.0); Mean Corpuscular Hemoglobin 29.1 pg (25.0-35.0); Mean Corpuscular Volume 87 fL (80-100); Monocytes # (Auto) 0.3 Thou/mm3 (0.0-0.8); Monocytes % (Auto) 4 % (0-12); Neutrophils # (Auto) 5.9 Thou/mm3 (1.8-7.7); Neutrophils % (Auto) 81 % (37-80); Nucleated Red Blood Cell # 0.00 Thou/mm3 (0.00-0.00); Nucleated Red Blood Cell % 0 /100 WBC (0); Platelet Count 233 Thou/mm3 (140-440); RDW Standard Deviation 40.9 fL (36.4-46.3); Red Blood Count 5.06 Miln/mm3 (4.00-5.20); White Blood Count 7.2 Thou/mm3 (3.6-11.0)
[2024-12-15 12:28] LABS: Alanine Aminotransferase 15 U/L (10-49); Albumin, Serum 4.3 gm/dL (3.4-4.8); Albumin/Globulin Ratio 1.6 (1.2-2.2); Alkaline Phosphatase 91 U/L (46-116); Anion Gap 8 (7-16); Aspartate Amino Transferase 16 U/L (0-34); BUN/Creatinine Ratio 10 Ratio (12-20); Bilirubin,Direct 0.2 mg/dL (0.0-0.3); Bilirubin,Total 0.5 mg/dL (0.3-1.2); Blood Urea Nitrogen 10 mg/dL (9-23); Calcium 8.5 mg/dL (8.3-10.6); Calcium (Corrected) 8.5 mg/dL (8.5-10.1); Carbon Dioxide 32.4 mMol/L (20.0-31.0); Cardiac Risk Estimate 5.8 RATIO (3.7-5.6); Chloride 101 mMol/L (98-107); Cholesterol 202 mg/dL (132-200); Creatinine (Component) 1.0 mg/dL (0.6-1.3); Globulin 2.7 gm/dL (2.3-3.5); Glucose 102 mg/dL (74-106); HDL Cholesterol 35 mg/dL (40-60); LDL Cholesterol,Calculated 135 mg/dL (0-130); Osmolality,Calculated 280 (275-295); Phosphorous 2.8 mg/dL (2.4-5.1); Potassium 4.4 mMol/L (3.4-5.1); Sodium 141 mMol/L (136-145); Total Protein 7.0 gm/dL (5.7-8.2); Triglycerides 159 mg/dL (30-150); eGFR 58 See Note
[2024-12-15 12:54] LABS: Collection Type, Urine Clean Catch
[2024-12-15 13:28] LABS: Bilirubin,Urine Negative (Negative); Blood,Urine Negative (Negative); Clarity,Urine Clear (Clear/Hazy); Color,Urine Yellow (Lt Yel-Yel); Glucose, Urine Negative (Negative); Ketones,Urine Negative (Negative); Leukocyte Esterase,Urine Positive (Negative); Nitrite,Urine Negative (Negative); PH,Urine 6.5 (5.0-7.0); Protein,Urine Trace (Neg - Trace); RBC,Urine 3 /hpf (0-3); Specific Gravity,Urine 1.024 (1.001-1.035); Squamous Epithelial Cell,Urine < 1 /hpf (0-5); Urobilinogen,Urine Negative mg/dL (0.0-1.0); WBC,Urine 5 /hpf (0-5)
== END | disposition home or self-care (01) ==
LOC: COPL 11:33
PROVIDERS: PCP Nurse Practitioner Family; Referring Provider Internal Medicine Nephrology; Visit Provider Internal Medicine Nephrology
DX: Z01.818 Encounter for other preprocedural examination (principal); N18.2 Chronic kidney disease, stage 2 (mild); E78.5 Hyperlipidemia, unspecified; R94.5 Abnormal results of liver function studies; N39.0 Urinary tract infection, site not specified; R29.6 Repeated falls
CPT/HCPCS: 36415; 80053; 80061; 81001; 82248; 84100; 85025

== ENCOUNTER → 2025-01-10 | Outpatient (CLI) | payer OTHER, SELFPAY ==
--- NOTE | 2025-01-10 07:00 | XR_ITS ---
EXAMINATION: MRI brain with intravenous contrast TECHNIQUE: Axial sagittal coronal brain MRI images post intravenous administration 17 cc gadolinium INDICATIONS: Dizziness episodes 8 years Date and time: January 10, 2025, 0706 hours, comparison December 28, 2018 FINDINGS: The ventricles are normal in size and configuration. No mass effect upon the ventricular system. 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
== END | disposition home or self-care (01) ==
LOC: SMRI 06:38
PROVIDERS: PCP Nurse Practitioner Family; Referring Provider Nurse Practitioner Family; Visit Provider Nurse Practitioner Family
DX: H70.93 Unspecified mastoiditis, bilateral (principal)
CPT/HCPCS: 70552; A9577